=== PATIENT | male | born 1990 | race Caucasian/White ===

== ENCOUNTER 2018-05-29 16:38 | Inpatient (IN) | payer MEDICAID, OTHER ==
[2018-05-29] MEDS ORDERED: NS 1,000 ML IV ONE ×3 (17:08→18:20)
--- NOTE | 2018-05-29 17:08 | EDPHY ---
H & P Stated Complaint: dk red urine/working out a ton/generalized myalgias egd yesterday for gerd/ Time Seen by Provider: 05/29/18 17:08 HPI/ROS: CHIEF COMPLAINT: Dark urine, concerned about rhabdomyolysis HISTORY OF PRESENT ILLNESS: Patient presents to the ED with a 1 day history of dark urine. The patient is concerned about rhabdomyolysis as he has resumed a high intensity work out this week. The patient also complains of myalgias in his thighs chest and arms. The patient reports he is urinating normally. He denies any flank pain. The patient denies any prior history of nephrolithiasis or genitourinary abnormality. The patient did have an unremarkable EGD yesterday for evaluation of mild gastritis. He took a single omeprazole tablet today at the recommendation of his ENT physician. The patient also takes occasional Zyrtec and Flonase as needed for seasonal allergies. REVIEW OF SYSTEMS: A comprehensive 10 point review of systems is otherwise negative aside from elements mentioned in the history of present illness. Source: Patient Exam Limitations: No limitations - Personal History Current Tetanus/Diphtheria Vaccine: Yes - Medical/Surgical History Hx Asthma: No Hx Chronic Respiratory Disease: No Hx Diabetes: No Hx Cardiac Disease: No Hx Renal Disease: No Hx Cirrhosis: No Hx Alcoholism: No Hx HIV/AIDS: No Hx Splenectomy or Spleen Trauma: No Other PMH: denies - Social History Smoking Status: Never smoked - Physical Exam Exam: General Appearance: Alert, no distress Eyes: Pupils equal and round no pallor or injection ENT, Mouth: Mucous membranes moist Respiratory: There are no retractions, lungs are clear to auscultation Cardiovascular: Regular rate and rhythm Gastrointestinal: Abdomen is soft and nontender, no masses, bowel sounds normal Neurological: A&O, normal motor function, normal sensory exam, normal cranial nerves Skin: Warm and dry, no rashes Musculoskeletal: Neck is supple nontender Extremities: symmetrical, full range of motion, muscular tenderness appreciated in the biceps and quadriceps muscles Constitutional: Initial Vital Signs Temperature (C) 37.1 C 05/29/18 16:54 Heart Rate 90 05/29/18 16:54 Respiratory Rate 18 05/29/18 16:54 Blood Pressure 150/113 H 05/29/18 16:54 O2 Sat (%) 96 05/29/18 16:54 O2 Delivery Mode Room Air Allergies/Adverse Reactions: Sulfa (Sulfonamide Antibiotics) Allergy (Verified 05/29/18 16:53) cillins Allergy (Uncoded 05/29/18 16:53) Home Medications: Medication Instructions Recorded Omeprazole 05/29/18 Medical Decision Making ED Course/Re-evaluation: ED course: The patient presents the emergency department with myalgias and dark urine. The patient does have a CPK that is least 10,000. He has a normal creatinine. In the emergency department he received 3 L of normal saline. The patient will be admitted to the hospital for aggressive IV fluid rehydration in the setting of his acute rhabdomyolysis. Consultation was made with Dr. Isabel Bland from the hospitalist service who will admit the patient. I re-evaluated the patient at 7:00 p.m.. He is comfortable being admitted and understands the plan for aggressive rehydration. Differential Diagnosis: Differential diagnosis considered includes rhabdomyolysis, renal failure, hyperkalemia, hematuria, nephrolithiasis - Data Points Laboratory Results: Laboratory Results 05/29/18 17:20 05/29/18 17:20 05/29/18 05/29/18 05/29/18 17:20 17:20 17:20 WBC 15.95 10^3/uL H 10^3/uL (3.80-9.50) RBC 5.10 10^6/uL 10^6/uL (4.40-6.38) Hgb 15.1 g/dL g/dL (13.7-17.5) Hct 42.8 % % (40.0-51.0) MCV 83.9 fL fL (81.5-99.8) MCH 29.6 pg pg (27.9-34.1) MCHC 35.3 g/dL g/dL (32.4-36.7) RDW 12.7 % % (11.5-15.2) Plt Count 325 10^3/uL 10^3/uL (150-400) MPV 8.5 fL L fL (8.7-11.7) Neut % (Auto) 76.4 % H % (39.3-74.2) Lymph % (Auto) 15.4 % % (15.0-45.0) Dent % (Auto) 6.5 % % (4.5-13.0) Eos % (Auto) 0.9 % % (0.6-7.6) Baso % (Auto) 0.2 % L % (0.3-1.7) Nucleat RBC Rel Count 0.0 % % (0.0-0.2) Absolute Neuts (auto) 12.18 10^3/uL H 10^3/uL (1.70-6.50) Absolute Lymphs (auto) 2.46 10^3/uL 10^3/uL (1.00-3.00) Absolute Monos (auto) 1.04 10^3/uL H 10^3/uL (0.30-0.80) Absolute Eos (auto) 0.14 10^3/uL 10^3/uL (0.03-0.40) Absolute Basos (auto) 0.03 10^3/uL 10^3/uL (0.02-0.10) Absolute Nucleated RBC 0.00 10^3/uL 10^3/uL (0-0.01) Immature Gran % 0.6 % % (0.0-1.1) Immature Gran # 0.10 10^3/uL 10^3/uL (0.00-0.10) Sodium 142 mEq/L mEq/L (135-145) Potassium 4.0 mEq/L mEq/L (3.3-5.0) Chloride 106 mEq/L mEq/L (97-110) Carbon Dioxide 27 mEq/l mEq/l (22-31) Anion Gap 9 mEq/L mEq/L (8-16) BUN 14 mg/dL mg/dL (7-23) Creatinine 1.3 mg/dL mg/dL (0.7-1.3) Estimated GFR > 60 Glucose 100 mg/dL mg/dL (70-100) Calcium 9.4 mg/dL mg/dL (8.5-10.4) Creatine Kinase Pending Urine Color YELLOW Urine Appearance CLEAR Urine pH 7.0 (5.0-7.5) Ur Specific [place] 1.003 (1.002-1.030) Urine Protein 1+ H (NEGATIVE) Urine Ketones NEGATIVE (NEGATIVE) Urine Blood 3+ H (NEGATIVE) Urine Nitrate NEGATIVE (NEGATIVE) Urine Bilirubin NEGATIVE (NEGATIVE) Urine Urobilinogen NEGATIVE EU EU (0.2-1.0) Ur Leukocyte Esterase NEGATIVE (NEGATIVE) Urine RBC 1-3 /hpf /hpf (0-3) Urine WBC 1-3 /hpf /hpf (0-3) Ur Epithelial Cells NONE SEEN /lpf /lpf (NONE-1+) Urine Glucose NEGATIVE (NEGATIVE) Medications Given: Discontinued Medications Sodium Chloride (Ns) 1,000 mls @ 0 mls/hr IV EDNOW ONE; Wide Open PRN Reason: Protocol Stop: 05/29/18 17:09 Last Admin: 05/29/18 17:31 Dose: 1,000 mls Departure - Departure Dis[facility] Clinical Impression: Rhabdomyolysis Condition: Good
[2018-05-29 17:27] LABS: PLATELET COUNT 325 10^3/uL (150-400)
[2018-05-29] MEDS ORDERED: ONDANSETRON 4 MG/2 ML VIAL IVP PRN (18:50)
[2018-05-29] MEDS ORDERED: ACETAMINOPHEN 325 MG TAB PO PRN (18:50)
[2018-05-29] MEDS ORDERED: ONDANSETRON DISINTEGRATING 4 MG TAB PO PRN (18:50)
[2018-05-29] MEDS ORDERED: CETIRIZINE 10 MG TAB PO PRN (20:41)
[2018-05-29] MEDS ORDERED: FLUTICASONE NASAL 120 SPRAYS/16 GM MDI EACHNARE PRN (20:41)
[2018-05-29] MEDS: NS 1,000 ML IV SCH (20:54)
--- NOTE | 2018-05-29 21:27 | GHP ---
[f rep st] HISTORY AND PHYSICAL DATE OF ADMISSION: 05/29/2018 CHIEF COMPLAINT: Rhabdomyolysis, RIYA. HISTORY OF PRESENT ILLNESS: A 27-year-old male with past medical history of reflux and seasonal niurka rgies, presenting with myalgias and hematuria. 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 He had not had much time to work out, but when returning [facility] to [place], he went back to his regular regimen of weightlifting and running. Denies any flank or suprapubic pain. No dysuria. Today, he developed hematuria and that is what brought him to the [facility] room. REVIEW OF SYSTEMS: I completed a 10-point review of systems, negative except as noted in HPI. PAST MEDICAL HISTORY: Reflux, allergies. PAST SURGICAL HISTORY: [place] teeth. FAMILY HISTORY: Dad with a bicuspid aortic valve, maternal grandfather with cancer, maternal aunt wi th breast cancer. SOCIAL HISTORY: He is a 4th year of [employer]. Lives in [place]. Occasional al cohol. No tobacco or illicits. MEDICATIONS: Vitamin D3, Flonase, Zyrtec, omeprazole. PHYSICAL EXAMINATION: VITAL SIGNS: Temperature 37.3, blood pressure 132/75, heart rate is in the 80 s, respirations 18, 95% on room air. GENERAL: Well-appearing male in no acute distress. HEENT: Mo ist mucous membranes. CV: Regular rate and rhythm. No murmurs, gallops, or rubs. LUNGS: Clear. ABDOMEN: Soft, nontender, nondistended. MUSCULOSKELETAL: 5/5 upper lower extremity strength. Tend erness over upper chest and thighs. : No [place]. No suprapubic or CVA tenderness. NEUROLOGIC: 2 through 12 intact. PSYCH: Alert and oriented x3. LABORATORY DATA: WBC 15, hemoglobin 15, hematocrit 42, platelets 325. Sodium 142; potassium 4; chlo ride 106; carbon dioxide 27; BUN 14; creatinine 1.3, down from baseline; glucose 100. CK is greater than 30,000 K. Urine: +1 protein, +3 blood. ASSESSMENT/PLAN: 1. Rhabdomyolysis: Secondary to intense workout and likely dehydration with high temperatures recen tly. We will aggressively hydrate with IV fluids. Repeat CK in the morning. Is currently having go od urinary output. 2. Acute kidney injury: Secondary to rhabdomyolysis and dehydration. Again, aggressive IV resuscit ation. 3. Leukocytosis, likely stress inflammation. He denies any infectious symptoms. 4. Diet: Regular. 5. Deep venous thrombosis prophylaxis: Low risk. DISPOSITION: Observation admission given rhabdomyolysis, RIYA warranting aggressive IV fluid resuscit ation. /[id number]/MODL
[2018-05-29 23:04] LABS: CREATINE KINASE > 64000 IU/L (0-224)
[2018-05-30] MEDS: NS 1,000 ML IV SCH ×4 (02:07→20:15)
[2018-05-30] MEDS: PANTOPRAZOLE SODIUM 40 MG TAB PO SCH (09:26)
[2018-05-30] MEDS: CHOLECALCIFEROL VIT D3 1,000 UNITS TAB PO SCH (09:26)
--- NOTE | 2018-05-30 09:41 | HOSPPROG ---
Hospitalist Progress Note Assessment/Plan: 27 yo M w exercise induced rhabdomyolysis rhabdo: CK remains markedly elevated repeat CK at 12 continue IVF proph: low risk, ambulatory RIYA: pre renal as opposed to rhabdo continue IVF dispo: likely change to inpatient Subjective: ck appears to be trending down. no supplements, stimulant drugs or sleeping on hard surfaces Objective: Vital Signs Temp Pulse Resp BP Pulse Ox 36.8 C 74 16 140/59 H 94 05/30/18 07:34 05/30/18 07:34 05/30/18 07:34 05/30/18 07:34 05/30/18 07:34 Laboratory Results 05/30/18 04:24 05/29/18 05/30/18 05/31/18 05:59 05:59 05:59 Intake Total 5743 Output Total 1000 550 Balance 4743 -550 - Physical Exam Constitutional: no apparent distress, appears nourished Eyes: PERRL, anicteric sclera Ears, Nose, Mouth, Throat: moist mucous membranes, hearing normal, ears appear normal Cardiovascular: regular rate and rhythym, no murmur, rub, or gallop, No tachycardia Respiratory: no respiratory distress, no rales or rhonchi Gastrointestinal: normoactive bowel sounds, soft, non-tender abdomen Genitourinary: no bladder fullness, No somers in urethra Skin: warm, normal color Musculoskeletal: full muscle strength, other (no e/o compartment syndrome), No no muscle tenderness Neurologic: AAOx3, sensation intact bilaterally ICD10 Worksheet Patient Problems: Problems Problem Status Onset Rhabdomyolysis Acute
--- NOTE | 2018-05-30 15:40 | PDMN ---
Medical Necessity Medical necessity: change to IP; los>2mn for exercise induced rhabdomyolysis with markedly elevated CK, and RIYA;requires continued IVF, monitor labs; per order and progress note 05/30/18
[2018-05-30 15:57] LABS: CREATINE KINASE > 30000 IU/L (0-224)
[2018-05-31] MEDS: NS 1,000 ML IV SCH ×4 (02:56→20:27)
[2018-05-31] MEDS: CHOLECALCIFEROL VIT D3 1,000 UNITS TAB PO SCH (09:31)
[2018-05-31] MEDS: PANTOPRAZOLE SODIUM 40 MG TAB PO SCH (09:31)
--- NOTE | 2018-05-31 09:44 | HOSPPROG ---
Hospitalist Progress Note Assessment/Plan: 27 yo M w exercise induced rhabdomyolysis rhabdo: CK remains markedly elevated repeat CK at 12 continue IVF 05/31- will have lab check absolute values repeat at 2 p today proph: low risk, ambulatory RIYA: pre renal as opposed to rhabdo continue IVF dispo: inpatient Subjective: CK remains elevated. no muscle soreness Objective: Vital Signs Temp Pulse Resp BP Pulse Ox 36.6 C 64 16 134/79 H 94 05/31/18 07:56 05/31/18 07:56 05/31/18 07:56 05/31/18 07:56 05/31/18 07:56 05/30/18 05/31/18 06/01/18 05:59 05:59 05:59 Intake Total 4790 500 Output Total 5500 1100 Balance -710 -600 - Physical Exam Constitutional: no apparent distress, appears nourished Eyes: PERRL, anicteric sclera Ears, Nose, Mouth, Throat: moist mucous membranes, hearing normal Cardiovascular: regular rate and rhythym, no murmur, rub, or gallop, No tachycardia Respiratory: no respiratory distress, no rales or rhonchi Gastrointestinal: normoactive bowel sounds, soft, non-tender abdomen Genitourinary: no bladder fullness, No somers in urethra Skin: warm, normal color Musculoskeletal: full muscle strength, no muscle tenderness Neurologic: AAOx3 ICD10 Worksheet Patient Problems: Problems Problem Status Onset Rhabdomyolysis Acute
--- NOTE | 2018-05-31 10:23 | ASMTCMCOM ---
CM Note CM Note Notes: Pt admitted for rhabdo and will likely have no DC needs. Date Signed: 05/31/2018 10:22 AM Electronically Signed By:Jazmyne Mensah LCSW
[2018-05-31 10:34] LABS: CREATINE KINASE > 30000 IU/L (0-224)
[2018-05-31 10:35] LABS: CREATINE KINASE > 30000 IU/L (0-224)
[2018-05-31 10:36] LABS: CREATINE KINASE > 30000 IU/L (0-224)
[2018-05-31 14:41] LABS: CREATINE KINASE > 30000 IU/L (0-224)
[2018-06-01] MEDS: NS 1,000 ML IV SCH (05:28)
[2018-06-01 05:51] LABS: CREATINE KINASE > 30000 IU/L (0-224)
--- NOTE | 2018-06-01 09:46 | HOSPPROG ---
Hospitalist Progress Note Assessment/Plan: 27 yo M w exercise induced rhabdomyolysis rhabdo: CK remains markedly elevated repeat CK at 12 continue IVF will dc IVF, follOW ck proph: low risk, ambulatory RIYA: pre renal as opposed to rhabdo continue IVF dispo: inpatient Subjective: no muscle tenderness. anxious for dc Objective: Vital Signs Temp Pulse Resp BP Pulse Ox 36.8 C 70 16 140/68 H 94 06/01/18 08:36 06/01/18 08:36 06/01/18 08:36 06/01/18 08:36 06/01/18 08:36 Laboratory Results 06/01/18 04:32 05/31/18 06/01/18 06/02/18 05:59 05:59 05:59 Intake Total 4790 3034 Output Total 5500 2300 Balance -710 734 - Physical Exam Constitutional: no apparent distress, appears nourished Eyes: PERRL, anicteric sclera Ears, Nose, Mouth, Throat: moist mucous membranes, hearing normal Cardiovascular: regular rate and rhythym, no murmur, rub, or gallop Respiratory: no respiratory distress, no rales or rhonchi Gastrointestinal: normoactive bowel sounds, soft, non-tender abdomen Genitourinary: No somers in urethra Skin: warm, normal color Musculoskeletal: full muscle strength, no muscle tenderness Neurologic: AAOx3 ICD10 Worksheet Patient Problems: Problems Problem Status Onset Rhabdomyolysis Acute
[2018-06-01] MEDS: CHOLECALCIFEROL VIT D3 1,000 UNITS TAB PO SCH (10:28)
[2018-06-01] MEDS: PANTOPRAZOLE SODIUM 40 MG TAB PO SCH (10:28)
[2018-06-01 14:00] LABS: CREATINE KINASE > 30000 IU/L (0-224)
[2018-06-01 15:22] VITALS: BP 124/85
--- NOTE | 2018-06-01 20:18 | GDS ---
[f rep st] DISCHARGE SUMMARY DISCHARGE DIAGNOSES: Severe rhabdomyolysis, secondary to work out. HOSPITAL COURSE: The patient presented with dark urine and muscle pain. He had recently started work ing out after a long interval with a relatively intense workout. 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 His presenting CK assay was greater than 30,000. It was actually 107 ,000. His creatinine was 1.3 on presentation and he was slightly clinically dry. It trended down to 0 .9. His CK slowly trended down and is currently 30,000 after multiple checks with his progressive crystal nward trend. I discussed the risks and benefits of discharge versus stay. The patient agrees to disch arge. I will discharge him home today. I have plan for a prescription for CK and metabolic panel [place], and then, we will continue to follow this. I have given my cell phone number to communicate res ults of the test. /[id number]/MODL
== END 2018-06-01 16:16 | disposition home or self-care (01) | DRG 351 ==
LOC: F1N 20:02 → OBSVTOIN 05-30 14:41
PROVIDERS: ADMIT Internal Medicine; ATTEND Internal Medicine
DX: M62.82 Rhabdomyolysis (principal); N17.9 Acute kidney failure, unspecified; D72.829 Elevated white blood cell count, unspecified; E86.0 Dehydration; K21.9 Gastro-esophageal reflux disease without esophagitis; K29.70 Gastritis, unspecified, without bleeding; Z88.2 Allergy status to sulfonamides
CPT/HCPCS: G0378